=== PATIENT | male | born 1930 | race Caucasian/White ===

== ENCOUNTER 2019-01-07 14:29 | Inpatient (IN) ==
[2019-01-07] MEDS ORDERED: 0.9 % Sodium Chloride 1,000 ML IVC ONE (14:32)
--- NOTE | 2019-01-07 14:32 | Emergency Department Note ---
Disposition Clinical Impression: Dementia, Altered mental status, Atrial fibrillation, CKD (chronic kidney disease) stage 3, GFR 30-59 ml/min, Aspiration pneumonia, Strep pharyngitis, Elevated troponin Disposition: Admitted As Inpatient Condition: Fair Referrals: Mariah Almanzar MD [Primary Care Provider] - Forms: ED Satisfaction Letter Time of Disposition: 16:41 Altered Mental Status HPI - General Chief Complaint: ED Altered Mental Status Stated Complaint: ams Time Seen by Provider: 01/07/19 14:30 Source: EMS Mode of arrival: EMS Limitations: altered mental status Nursing Notes Reviewed: Yes Vital Signs Reviewed: Yes - History of Present Illness HPI Narrative: 88-year-old male who presents today from a skilled nursing with altered mental status. He is apparently a DNR and preparing to go on hospice. He has not eaten or drank in several days. Hospice wanted him checked out prior to be placed on hospice to make sure that he was well enough to be on hospice. Patient is a nonverbal patient. He does not complain of anything. He does not use words and sometimes points when he is having pain. At this point he moans to tactile stimulation but otherwise is not answering any questions at this time. complaint: altered mental status, decreased responsiveness - Related Data Home Medications Medication Instructions Recorded Confirmed Atorvastatin [Lipitor] 40 mg PO HS 06/02/16 01/07/19 Docusate [Colace] 100 mg PO BID 06/02/16 01/07/19 Donepezil HCl [Aricept] 10 mg PO HS 06/02/16 01/07/19 Finasteride [Proscar] 5 mg PO DAILY 06/02/16 01/07/19 Furosemide [Lasix] 40 mg PO DAILY 06/02/16 01/07/19 Levothyroxine [Synthroid] 125 mcg PO 0630 06/02/16 01/07/19 Loperamide [Imodium] 4 mg PO QID PRN MDD 4 06/02/16 01/07/19 Losartan Potassium [Cozaar] 50 mg PO DAILY 06/02/16 01/07/19 MOM Conc [MILK OF MAGNESIA conc] 30 ml PO PRN PRN 06/02/16 01/07/19 Magnesium Hydroxide [Milk of 30 ml PO DAILY PRN 06/02/16 01/07/19 Magnesia] Multivitamin [Multivitamins] 1 each PO QAM 06/02/16 01/07/19 Mylanta 30 ml PO PRN PRN 06/02/16 01/07/19 Omega3/Dha/Epa/Fish Oil/Vit D3 1 each PO BID 06/02/16 01/07/19 [Fish Oil + Vitamin D-3 Softgel] Omeprazole 20 mg PO QMWF 06/02/16 01/07/19 Atenolol [Tenormin] 50 mg PO DAILY 06/08/16 01/07/19 Calcium Carbonate/Vitamin D3 1 each PO BID 06/08/16 01/07/19 [Oyster Shell Calcium-Vit D Tab] diazePAM [Valium] 2 mg PO DAILY PRN 06/08/16 01/07/19 Acetaminophen [Acetaminophen ER] 650 mg PO Q4H PRN 01/07/19 01/07/19 Albuterol Neb [AccuNeb] 0.63 mg IH Q4H PRN 01/07/19 01/07/19 Apixaban [Eliquis] 2.5 mg PO BID 01/07/19 01/07/19 Cholecalciferol (Vitamin D3) 1,000 unit PO DAILY 01/07/19 01/07/19 [Dialyvite Vitamin D] Guaifenesin [Robafen] 200 mg PO Q4H PRN 01/07/19 01/07/19 Memantine HCl [Namenda Xr] 28 mg PO DAILY 01/07/19 01/07/19 Methyl Salicylate/Menthol [Bengay] 1 appl TP TID PRN 01/07/19 01/07/19 diazePAM [Valium] 10 mg PO PRN PRN 01/07/19 01/07/19 Previous Rx's Medication Instructions Recorded Isosorbide MONOnitrate (24 HR) 30 mg PO DAILY #30 tab.er.24h 06/05/16 [Imdur] Loratadine [Claritin] 10 mg PO QAM PRN #0 06/05/16 Allergies Allergy/AdvReac Type Severity Reaction Status Date / Time No Known Allergies Allergy Verified 06/02/16 20:46 Review of Systems: All other systems are negative except as noted/marked Chart generated with voice recognition software Nursing notes reviewed Old records reviewed Past Medical History - Past Medical History Attestation: Yes The following information was validated with the patient. Source: patient, old records reviewed, nursing notes reviewed Medical history: Reports: atrial fibrillation, COPD, coronary artery disease, GERD, hyperlipidemia, hypertension, seizures, other (Bradycardia) Psychiatric history: Reports: other - Social History Smoking Status: Never smoker Smokeless Tobacco Status: No Alcohol use: Reports: none Drug use: Reports: none Physical Exam - General Limitations: altered mental status General appearance: in no apparent distress - Head Head exam: atraumatic, normocephalic, normal inspection - Eye Eye exam: Present: normal appearance, PERRL, EOMI - ENT ENT exam: normal oropharynx, mucous membranes dry, normal external ear exam - Neck Neck exam: Present: normal inspection, full ROM, trachea midline - Chest Chest inspection: Present: normal inspection, symmetric chest wall rise - Respiratory Respiratory exam: Present: normal lung sounds bilaterally - Cardiovascular Cardiovascular exam: Present: regular rate, irregular rhythm, systolic murmur - Abdominal Exam Abdominal exam: Present: soft, Non-Tender, normal bowel sounds - Extremities Exam Extremities exam: Present: normal inspection, full ROM, normal capillary refill. Absent: tenderness, pedal edema - Back Exam Back exam: Present: normal inspection - Neurological Exam Neurological exam: Present: CN II-XII intact, other (arousable) - Psychiatric Psychiatric exam: Present: other (unable to assess) - Skin Skin exam: Present: warm, dry, intact, normal color Course Vital Signs Temperature 98.2 F 01/07/19 14:38 Pulse Rate 97 01/07/19 14:38 Respiratory Rate 22 01/07/19 14:38 Blood Pressure 99/56 01/07/19 14:38 O2 Sat by Pulse Oximetry 97 01/07/19 14:38 Temperature 98.2 F 01/07/19 14:38 Pulse Rate 62 01/07/19 16:35 Respiratory Rate 16 01/07/19 16:35 Blood Pressure 102/53 01/07/19 16:35 O2 Sat by Pulse Oximetry 94 01/07/19 16:35 Oxygen Delivery Oxygen Delivery Nasal Cannula Altered Mental Status - MDM Narrative Medical decision making narrative: 88-year-old gentleman who presents today by ambulance for altered mental status. He was sent in for evaluation for hospice care. Patient has not been eating or drinking anything for the last 2 days and has become increasingly agitated and does not like to be touched. He has no complaints. Patient is nonverbal. When patient arrived he is placed on monitor and found to be in A. fib which is chronic for him. His lung sounds were clear. Belly sounds are normal. Patient's had a for urine and nursing staff reports some yeast around the penis. Diflucan ordered for the yeast infection. Patient's creatinine is elevated however this is chronic for the patient and normal for him. He is a 19.6 white count. Chest x-ray pending however urinalysis does not show any infection. I do not see any open wounds on evaluation of the patient. His belly is soft. He is afebrile. CT head pending. CT head and CT and chest x-ray are negative. Ordered a dry skin of his abdomen and pelvis to completely rule out any other infection or insidious pathology. I also ordered a flu swab and rapid strep. CT abdomen and pelvis shows maybe some aspiration pneumonia and so started around his kidneys however his urinalysis was unremarkable. Your culture sent. Rapid strep was also positive. His received Zosyn here. I will add vancomycin when he is admitted. We did treat the yeast around his penis. I spoke with Dr. Ley regarding the patient he is agreeable to keep him. We did give him 1 L fluid but given his chronic kidney disease and CHF history I think he can go on to a maintenance fluid after this and not get a full 30/kg IV fluid bolus. Patient's resting comfortably at this time. He is being admitted to the floor for IV antibiotics - Medical Records Medical records reviewed: Yes I reviewed the patient's medical records. - Lab Data Lab results reviewed: Yes I reviewed the patient's lab results. Result diagrams: 01/07/19 14:46 01/07/19 14:46 Lab Results 01/07/19 01/07/19 01/07/19 Range/Units 14:46 14:46 14:46 WBC 19.8 H (4.3-11.1) K/mcL RBC 4.36 (4.19-5.50) M/mcL Hgb 14.0 (12.9-16.9) g/dL Hct 41.5 (37.5-50.1) % MCV 95.2 (83.0-100.0) fL MCH 32.1 (28.0-33.3) pg MCHC 33.7 (31.6-35.5) g/dL RDW 13.4 (11.5-14.5) % Plt Count 151 (140-400) K/mcL MPV 11.4 (9.4-12.4) fL Immature Gran % 0.4 (0-4) % Seg Neutrophils % 89.2 % Lymphocytes % 4.6 % Monocytes % 5.5 % Eosinophils % 0.0 % Basophils % 0.3 % Neutrophils # 17.7 H (1.6-8.9) K/mcL Lymphocytes # 0.9 (0.6-4.6) K/mcL Monocytes # 1.1 (0.0-1.3) K/mcL Eosinophils # 0.0 (0.0-0.6) K/mcL Basophils # 0.1 (0.0-0.2) K/mcL PT 17.5 H (9.4-12.1) Seconds INR 1.5 APTT 40.7 H (26.0-36.0) Seconds Sample Site ABG pH (7.32-7.45) pH Units ABG pCO2 (35-45) mmHg ABG pO2 (85-104) mmHg ABG HCO3 (21-27) mEq/L ABG Total CO2 (20-26) mEq/L ABG O2 Saturation (95-98) % ABG Base Excess (-2 to 3) mEq/L Willi Test O2 Delivery Device Sodium 140 (136-145) mEq/L Potassium 4.8 (3.5-5.1) mEq/L Chloride 104 (98-107) mEq/L Carbon Dioxide 26 (23-29) mEq/L BUN 41 H (8-23) mg/dL Creatinine 2.16 H (0.70-1.30) mg/dL Est GFR ( Amer) 35 L (> 60) Est GFR (Non-Af Amer) 29 L (> 60) BUN/Creatinine Ratio 19 (6-26) Glucose 159 H (70-105) mg/dL Calculated Osmolality 303 H (280-300) Lactic Acid (0.5-2.2) mmol/L Calcium 9.6 (8.6-10.3) mg/dL Magnesium (1.6-2.6) mg/dL Total Bilirubin 1.1 H (0.3-1.0) mg/dL Direct Bilirubin 0.2 (0.0-0.2) mg/dL Indirect Bilirubin 0.9 (0.0-1.2) mg/dL AST 23 (13-39) Units/L ALT 18 (7-52) Units/L Alkaline Phosphatase 100 (34-104) Units/L Troponin I 0.05 H* (< 0.04) ng/mL Serum Total Protein 7.1 (6.4-8.9) g/dL Albumin 3.5 (3.5-5.7) g/dL Globulin 3.6 H (2.4-3.5) g/dL Albumin/Globulin Ratio 1.0 L (1.1-2.2) Urine Color (Yellow) Urine Clarity (Clear) Urine pH (5.0-8.0) pH Units Ur Specific [place] (1.010-1.025) Urine Protein (Neg-Trace) mg/dL Urine Glucose (UA) (Normal) mg/dL Urine Ketones (Negative) mg/dL Urine Blood (Negative) Urine Nitrite (Negative) Urine Bilirubin (Negative) Urine Urobilinogen (Normal) mg/dL Ur Leukocyte Esterase (Negative) Ur Culture Indicated? (NO) Urine Opiates Screen (Fxiyfq=876) ng/mL Ur Oxycodone Screen (Cutoff= 100) ng/mL Ur Barbiturates Screen (Mfkmsy=925) ng/mL Ur Phencyclidine Scrn (Cutoff=25) ng/mL Ur Amphetamines Screen (Ssekdz=5792) ng/mL U Benzodiazepines Scrn (Ulujkw=528) ng/mL Urine Cocaine Screen (Cutoff= 300) ng/mL U Marijuana (THC) Screen (Cutoff = 50) ng/mL Ur Drug Screen Interp Ethyl Alcohol < 10 (Less than 10) mg/dL 01/07/19 01/07/19 01/07/19 Range/Units 14:46 14:59 15:04 WBC (4.3-11.1) K/mcL RBC (4.19-5.50) M/mcL Hgb (12.9-16.9) g/dL Hct (37.5-50.1) % MCV (83.0-100.0) fL MCH (28.0-33.3) pg MCHC (31.6-35.5) g/dL RDW (11.5-14.5) % Plt Count (140-400) K/mcL MPV (9.4-12.4) fL Immature Gran % (0-4) % Seg Neutrophils % % Lymphocytes % % Monocytes % % Eosinophils % % Basophils % % Neutrophils # (1.6-8.9) K/mcL Lymphocytes # (0.6-4.6) K/mcL Monocytes # (0.0-1.3) K/mcL Eosinophils # (0.0-0.6) K/mcL Basophils # (0.0-0.2) K/mcL PT (9.4-12.1) Seconds INR APTT (26.0-36.0) Seconds Sample Site R Radial ABG pH 7.49 H (7.32-7.45) pH Units ABG pCO2 28 L (35-45) mmHg ABG pO2 72 L (85-104) mmHg ABG HCO3 21 (21-27) mEq/L ABG Total CO2 22 (20-26) mEq/L ABG O2 Saturation 96 (95-98) % ABG Base Excess -1 (-2 to 3) mEq/L Willi Test N/A O2 Delivery Device Room Air Sodium (136-145) mEq/L Potassium (3.5-5.1) mEq/L Chloride (98-107) mEq/L Carbon Dioxide (23-29) mEq/L BUN (8-23) mg/dL Creatinine (0.70-1.30) mg/dL Est GFR ( Amer) (> 60) Est GFR (Non-Af Amer) (> 60) BUN/Creatinine Ratio (6-26) Glucose (70-105) mg/dL Calculated Osmolality (280-300) Lactic Acid (0.5-2.2) mmol/L Calcium (8.6-10.3) mg/dL Magnesium 2.0 (1.6-2.6) mg/dL Total Bilirubin (0.3-1.0) mg/dL Direct Bilirubin (0.0-0.2) mg/dL Indirect Bilirubin (0.0-1.2) mg/dL AST (13-39) Units/L ALT (7-52) Units/L Alkaline Phosphatase (34-104) Units/L Troponin I (< 0.04) ng/mL Serum Total Protein (6.4-8.9) g/dL Albumin (3.5-5.7) g/dL Globulin (2.4-3.5) g/dL Albumin/Globulin Ratio (1.1-2.2) Urine Color Yellow (Yellow) Urine Clarity Clear (Clear) Urine pH 5.0 (5.0-8.0) pH Units Ur Specific [place] 1.010 (1.010-1.025) Urine Protein Trace (Neg-Trace) mg/dL Urine Glucose (UA) Normal (Normal) mg/dL Urine Ketones Trace H (Negative) mg/dL Urine Blood Negative (Negative) Urine Nitrite Negative (Negative) Urine Bilirubin Negative (Negative) Urine Urobilinogen Normal (Normal) mg/dL Ur Leukocyte Esterase Negative (Negative) Ur Culture Indicated? NO (NO) Urine Opiates Screen (Psdcwo=571) ng/mL Ur Oxycodone Screen (Cutoff= 100) ng/mL Ur Barbiturates Screen (Ocfrtm=982) ng/mL Ur Phencyclidine Scrn (Cutoff=25) ng/mL Ur Amphetamines Screen (Vyvlbr=6611) ng/mL U Benzodiazepines Scrn (Bqoemq=058) ng/mL Urine Cocaine Screen (Cutoff= 300) ng/mL U Marijuana (THC) Screen (Cutoff = 50) ng/mL Ur Drug Screen Interp Ethyl Alcohol (Less than 10) mg/dL 01/07/19 01/07/19 Range/Units 15:04 15:04 WBC (4.3-11.1) K/mcL RBC (4.19-5.50) M/mcL Hgb (12.9-16.9) g/dL Hct (37.5-50.1) % MCV (83.0-100.0) fL MCH (28.0-33.3) pg MCHC (31.6-35.5) g/dL RDW (11.5-14.5) % Plt Count (140-400) K/mcL MPV (9.4-12.4) fL Immature Gran % (0-4) % Seg Neutrophils % % Lymphocytes % % Monocytes % % Eosinophils % % Basophils % % Neutrophils # (1.6-8.9) K/mcL Lymphocytes # (0.6-4.6) K/mcL Monocytes # (0.0-1.3) K/mcL Eosinophils # (0.0-0.6) K/mcL Basophils # (0.0-0.2) K/mcL PT (9.4-12.1) Seconds INR APTT (26.0-36.0) Seconds Sample Site ABG pH (7.32-7.45) pH Units ABG pCO2 (35-45) mmHg ABG pO2 (85-104) mmHg ABG HCO3 (21-27) mEq/L ABG Total CO2 (20-26) mEq/L ABG O2 Saturation (95-98) % ABG Base Excess (-2 to 3) mEq/L Willi Test O2 Delivery Device Sodium (136-145) mEq/L Potassium (3.5-5.1) mEq/L Chloride (98-107) mEq/L Carbon Dioxide (23-29) mEq/L BUN (8-23) mg/dL Creatinine (0.70-1.30) mg/dL Est GFR ( Amer) (> 60) Est GFR (Non-Af Amer) (> 60) BUN/Creatinine Ratio (6-26) Glucose (70-105) mg/dL Calculated Osmolality (280-300) Lactic Acid 2.7 H (0.5-2.2) mmol/L Calcium (8.6-10.3) mg/dL Magnesium (1.6-2.6) mg/dL Total Bilirubin (0.3-1.0) mg/dL Direct Bilirubin (0.0-0.2) mg/dL Indirect Bilirubin (0.0-1.2) mg/dL AST (13-39) Units/L ALT (7-52) Units/L Alkaline Phosphatase (34-104) Units/L Troponin I (< 0.04) ng/mL Serum Total Protein (6.4-8.9) g/dL Albumin (3.5-5.7) g/dL Globulin (2.4-3.5) g/dL Albumin/Globulin Ratio (1.1-2.2) Urine Color (Yellow) Urine Clarity (Clear) Urine pH (5.0-8.0) pH Units Ur Specific [place] (1.010-1.025) Urine Protein (Neg-Trace) mg/dL Urine Glucose (UA) (Normal) mg/dL Urine Ketones (Negative) mg/dL Urine Blood (Negative) Urine Nitrite (Negative) Urine Bilirubin (Negative) Urine Urobilinogen (Normal) mg/dL Ur Leukocyte Esterase (Negative) Ur Culture Indicated? (NO) Urine Opiates Screen Negative (Yywklt=202) ng/mL Ur Oxycodone Screen Negative (Cutoff= 100) ng/mL Ur Barbiturates Screen Negative (Fkdfja=659) ng/mL Ur Phencyclidine Scrn Negative (Cutoff=25) ng/mL Ur Amphetamines Screen Negative (Nriifk=1015) ng/mL U Benzodiazepines Scrn Positive H (Ctyhvb=742) ng/mL Urine Cocaine Screen Negative (Cutoff= 300) ng/mL U Marijuana (THC) Screen Negative (Cutoff = 50) ng/mL Ur Drug Screen Interp See Below Ethyl Alcohol (Less than 10) mg/dL - Radiology Data Radiology results reviewed: Yes I reviewed the patient's radiology results. CT/CT head/brain wo con IMPRESSION: No acute intracranial abnormality. D/ / Serge Macdonald MD / Serge Macdonald MD Interpreting Provider: Serge Macdonald MD XR/XR chest 1V portable IMPRESSION: Hypoaeration without acute process. Hiatal hernia D/ / Serge Macdonald MD / Serge Macdonald MD Interpreting Provider: Serge Macdonald MD - EKG Data EKG attestation: Yes I reviewed and interpreted this EKG. EKG results narrative: EKG interpreted by myself as A. fib with a rate of 102 QTc of 535 which is prolonged no ST elevation TPA Checklist - LKW: 3-4.5 hrs Add. Warnings/Precautions Patient/family understanding: The patient/family members have been counseled and understood the risk, benefit, and alternatives of treatment.
[2019-01-07 14:56] LABS: Basophils # 0.1 K/mcL (0.0-0.2); Basophils % 0.3 %; Hematocrit 41.5 % (37.5-50.1); Immature Granulocytes % 0.4 % (0-4); Lymphocytes # 0.9 K/mcL (0.6-4.6); Lymphocytes % 4.6 %; Mean Corpuscular HGB Conc 33.7 g/dL (31.6-35.5); Mean Corpuscular Hemoglobin 32.1 pg (28.0-33.3); Mean Corpuscular Volume 95.2 fL (83.0-100.0); Mean Platelet Volume 11.4 fL (9.4-12.4); Monocytes # 1.1 K/mcL (0.0-1.3); Monocytes % 5.5 %; Neutrophils # 17.7 K/mcL (1.6-8.9); Platelet Count 151 K/mcL (140-400); Red Blood Count 4.36 M/mcL (4.19-5.50); Red Cell Distribution Width 13.4 % (11.5-14.5); Segmented Neutrophils % 89.2 %; White Blood Count 19.8 K/mcL (4.3-11.1)
[2019-01-07 15:01] LABS: INR 1.5; Prothrombin Time 17.5 Seconds (9.4-12.1)
[2019-01-07 15:03] LABS: ABG Base Excess -1 mEq/L (-2 to 3); ABG HCO3 21 mEq/L (21-27); ABG Oxygen Saturation 96 % (95-98); ABG PCO2 28 mmHg (35-45); ABG PH 7.49 pH Units (7.32-7.45); ABG PO2 72 mmHg (85-104); ABG TCO2 22 mEq/L (20-26)
[2019-01-07 15:04] LABS: Activated Partial Thrombo Time 40.7 Seconds (26.0-36.0)
[2019-01-07] MEDS ORDERED: Piperacillin/Tazobactam 3.375 GM in 0.9 % Sodium Chloride Mini Bag 100 ML IVPB ONE (15:06)
[2019-01-07 15:13] LABS: Alanine Aminotransferase 18 Units/L (7-52); Albumin 3.5 g/dL (3.5-5.7); Alkaline Phosphatase 100 Units/L (34-104); Aspartate Amino Transferase 23 Units/L (13-39); BUN/Creatinine Ratio 19 (6-26); Bilirubin,Direct 0.2 mg/dL (0.0-0.2); Bilirubin,Indirect 0.9 mg/dL (0.0-1.2); Bilirubin,Total 1.1 mg/dL (0.3-1.0); Blood Urea Nitrogen 41 mg/dL (8-23); Calcium 9.6 mg/dL (8.6-10.3); Carbon Dioxide 26 mEq/L (23-29); Chloride 104 mEq/L (98-107); Ethanol < 10 mg/dL (Less than 10); Globulin 3.6 g/dL (2.4-3.5); Glucose 159 mg/dL (70-105); Osmolality,Calculated 303 (280-300); Potassium 4.8 mEq/L (3.5-5.1); Sodium 140 mEq/L (136-145); Total Protein 7.1 g/dL (6.4-8.9); eGFR For African Americans 35 (> 60); eGFR For Non-African Americans 29 (> 60)
[2019-01-07 15:14] LABS: Bilirubin,Urine Negative (Negative); Blood,Urine Negative (Negative); Clarity,Urine Clear (Clear); Color,Urine Yellow (Yellow); Glucose,Urine (UA) Normal (Normal); Ketones,Urine Trace mg/dL (Negative); Leukocyte Esterase,Urine Negative (Negative); Nitrite,Urine Negative (Negative); Protein,Urine Trace mg/dL (Neg-Trace); Urobilinogen,Urine Normal (Normal)
[2019-01-07] MEDS ORDERED: Fluconazole 200 MG/100 ML 100 MG/50 ML BAG IVPB SCH (15:15)
[2019-01-07 15:27] LABS: Amphetamine Screen,Urine Negative ng/mL (Cutoff=1000); Barbiturate Screen,Urine Negative ng/mL (Cutoff=200); Benzodiazepines Screen,Urine Positive ng/mL (Cutoff=200); Cannabinoid Screen,Urine Negative ng/mL (Cutoff = 50); Cocaine Screen,Urine Negative ng/mL (Cutoff= 300); Opiate Screen,Urine Negative ng/mL (Cutoff=300); Phencyclidine Screen,Urine Negative ng/mL (Cutoff=25)
[2019-01-07 16:23] LABS: Troponin I 0.05 ng/mL (< 0.04)
[2019-01-07] MEDS ORDERED: Mag Hydrox/Al Hydrox/Simeth 30 ML UDC PO PRN (18:36)
[2019-01-07] MEDS ORDERED: Naloxone 0.4 MG/ML INJ IVP PRN (18:36)
[2019-01-07] MEDS ORDERED: MOM Conc 10 ML UD.LIQ PO PRN ×2 (18:36)
[2019-01-07] MEDS ORDERED: Acetaminophen 325 MG TABLET PO PRN (18:36)
[2019-01-07] MEDS ORDERED: Methyl Salicylate/Menthol 28 GM TUBE TP PRN (18:36)
[2019-01-07] MEDS ORDERED: Ondansetron 4 MG/2 ML VIAL IVP PRN (18:36)
[2019-01-07] MEDS ORDERED: 0.9 % Sodium Chloride 1,000 ML IVC SCH (18:36)
[2019-01-07] MEDS ORDERED: *HR* HYDROcodone/Acet 5/325 mg TABLET PO PRN (18:36)
[2019-01-07] MEDS ORDERED: Milk and Molasses Enema 200 ML RC ONE (18:36)
[2019-01-07] MEDS ORDERED: Albuterol Neb 0.63 MG/3 ML VIAL IH PRN (18:36)
[2019-01-07] MEDS ORDERED: 0.9 % Sodium Chloride 500 ML IVC ONE (18:45)
[2019-01-07] MEDS: 0.9 % Sodium Chloride 1,000 ML IVC SCH (21:18)
[2019-01-07] MEDS: Apixaban 5 MG TABLET PO SCH (21:20)
[2019-01-07] MEDS: Piperacillin/Tazobactam 3.375 GM in 0.9 % Sodium Chloride Mini Bag 100 ML IVPB SCH (23:50)
[2019-01-08 05:50] LABS: Basophils # 0.1 K/mcL (0.0-0.2); Basophils % 0.4 %; Eosinophils # 0.2 K/mcL (0.0-0.6); Eosinophils % 1.2 %; Hematocrit 37.1 % (37.5-50.1); Hemoglobin 12.5 g/dL (12.9-16.9); Immature Granulocytes % 0.3 % (0-4); Lymphocytes # 1.3 K/mcL (0.6-4.6); Lymphocytes % 10.5 %; Mean Corpuscular HGB Conc 33.7 g/dL (31.6-35.5); Mean Corpuscular Hemoglobin 32.5 pg (28.0-33.3); Mean Corpuscular Volume 96.4 fL (83.0-100.0); Mean Platelet Volume 11.6 fL (9.4-12.4); Monocytes % 7.8 %; Neutrophils # 10.1 K/mcL (1.6-8.9); Platelet Count 147 K/mcL (140-400); Red Blood Count 3.85 M/mcL (4.19-5.50); Red Cell Distribution Width 13.8 % (11.5-14.5); Segmented Neutrophils % 79.8 %; White Blood Count 12.6 K/mcL (4.3-11.1)
[2019-01-08 06:09] LABS: Potassium 4.4 mEq/L (3.5-5.1)
[2019-01-08] MEDS ORDERED: Furosemide 40 MG TABLET PO SCH (09:00)
[2019-01-08] MEDS: Fluconazole 200 MG/100 ML 100 MG/50 ML BAG IVPB SCH (09:11)
[2019-01-08] MEDS: 0.9 % Sodium Chloride 1,000 ML IVC SCH (09:12)
--- NOTE | 2019-01-08 09:29 | Internal Med History&Physical ---
Date of Encounter: 01/08/19 Time of Encounter: 09:15 Assessment and Plan (1) Acute on chronic renal failure Current visit: Yes Status: Acute Lasix will be held and IV fluids will be given. Labs will be monitored. Qualifiers: Acute renal failure type: unspecified Chronic kidney disease stage: stage 3 (moderate) Qualified Code(s): N17.9 - Acute kidney failure, unspecified; N18.3 - Chronic kidney disease, stage 3 (moderate) (2) CKD (chronic kidney disease) stage 3, GFR 30-59 ml/min Current visit: Yes Status: Chronic As above (3) Elevated brain natriuretic peptide (BNP) level Current visit: Yes Status: Acute BN peptide was 2179 on 06/08/2016. Recheck today. (4) Atrial fibrillation Current visit: Yes Status: Chronic Suspect paroxysmal. Continue Eliquis Qualifiers: Atrial fibrillation type: paroxysmal Qualified Code(s): I48.0 - Paroxysmal atrial fibrillation (5) Anemia Current visit: No Status: Acute Hemoglobin decreased to 12.5 today after IV fluids administered. Recheck labs in a.m. Qualifiers: Anemia type: unspecified type Qualified Code(s): D64.9 - Anemia, unspecified (6) Hypothyroidism Current visit: No Status: Chronic TSH was normal at 1.232 on 09/09/2018. Continue present dose Synthroid Qualifiers: Hypothyroidism type: unspecified Qualified Code(s): E03.9 - Hypothyroidism, unspecified (7) Strep pharyngitis Current visit: Yes Status: Acute He was started on Zosyn and vancomycin in emergency room. Lactobacillus will be added. Internal Medicine - H&P: HPI Chief complaint: Altered mental status Admitted From: Emergency Dept Plans for Post Hospital Care: Home History of present illness: Mr. Lei is a 88 year old male who was sent from a half-way after staff report altered mental status. He could not offer additional history in emergency room because of MRDD. Evaluation in emergency room showed leukocytosis with left shift, respiratory alkalosis, lactic acidosis, and acute on chronic renal failure. He was admitted to [facility] floor for ongoing care needs. He cannot give additional history at this time. Past Med Surg Social Fam HX - Past Medical History Medical history: atrial fibrillation, COPD, coronary artery disease, GERD, hyperlipidemia, hypertension, myocardial infarction, seizures, other Additional medical history: severe mental retardation. cataracts. thrombophlebitis. systolic murmur Psychiatric history: no psych history - Social History Smoking Status: Never smoker Smokeless Tobacco Status: No Alcohol use: none Drug use: none - Family History Mother History Unknown: Yes Internal Medicine - H&P: Meds Atorvastatin [Lipitor] 40 mg PO HS 06/02/16 [History] Docusate [Colace] 100 mg PO BID 06/02/16 [History] Donepezil HCl [Aricept] 10 mg PO HS 06/02/16 [History] Finasteride [Proscar] 5 mg PO DAILY 06/02/16 [History] Furosemide [Lasix] 40 mg PO DAILY 06/02/16 [History] Levothyroxine [Synthroid] 125 mcg PO 0630 06/02/16 [History] Loperamide [Imodium] 4 mg PO QID PRN MDD 4 06/02/16 [History] Losartan Potassium [Cozaar] 50 mg PO DAILY 06/02/16 [History] MOM Conc [MILK OF MAGNESIA conc] 30 ml PO PRN PRN 06/02/16 [History] Magnesium Hydroxide [Milk of Magnesia] 30 ml PO DAILY PRN 06/02/16 [History] Multivitamin [Multivitamins] 1 each PO QAM 06/02/16 [History] Mylanta 30 ml PO PRN PRN 06/02/16 [History] Omega3/Dha/Epa/Fish Oil/Vit D3 [Fish Oil + Vitamin D-3 Softgel] 1 each PO BID 06/02/16 [History] Omeprazole 20 mg PO QMWF 06/02/16 [History] Isosorbide MONOnitrate (24 HR) [Imdur] 30 mg PO DAILY #30 tab.er.24h 06/05/16 [Rx] Loratadine [Claritin] 10 mg PO QAM PRN #0 06/05/16 [Rx] Atenolol [Tenormin] 50 mg PO DAILY 06/08/16 [History] Calcium Carbonate/Vitamin D3 [Oyster Shell Calcium-Vit D Tab] 1 each PO BID 06/08/16 [History] diazePAM [Valium] 2 mg PO DAILY PRN 06/08/16 [History] Acetaminophen [Acetaminophen ER] 650 mg PO Q4H PRN 01/07/19 [History] Albuterol Neb [AccuNeb] 0.63 mg IH Q4H PRN 01/07/19 [History] Apixaban [Eliquis] 2.5 mg PO BID 01/07/19 [History] Cholecalciferol (Vitamin D3) [Dialyvite Vitamin D] 1,000 unit PO DAILY 01/07/19 [History] Guaifenesin [Robafen] 200 mg PO Q4H PRN 01/07/19 [History] Memantine HCl [Namenda Xr] 28 mg PO DAILY 01/07/19 [History] Methyl Salicylate/Menthol [Bengay] 1 appl TP TID PRN 01/07/19 [History] diazePAM [Valium] 10 mg PO PRN PRN 01/07/19 [History] Allergy/AdvReac Type Severity Reaction Status Date / Time No Known Allergies Allergy Verified 06/02/16 20:46 All Systems PM: A 10-system review of systems was performed and is negative for pertinent findings except as documented above in the HPI. Review of systems: Unobtainable from the patient. Review of available records show the following: Gen.: Weight has decreased slightly from 74.979 kg on 06/05/2016 to present weight of 71.214 kg. Cardiovascular: He has atrial fibrillation and history of hypertension. Old records show diagnosis of ischemia of the inferior and lateral wall of the heart without the test/date to determine diagnosis specified. He has history of thrombophlebitis and leg edema. Echocardiogram 07/08/2018 showed LVEF of 50%. There was calcified aortic valve with severe aortic stenosis and estimated REGIS approximately 0.6 cm. There was mild aortic regurgitation and [id number] tricuspid regurgitation. Estimated RVSP was 32 mmHg. Interventricular septum and posterior wall thickness measurements were 1.01 and 0.80 cm respectively. There was LAE at 4.60 cm. No mention of DVT or pulmonary embolus is recorded. Respiratory: Smoking history is not reported. There is no mention of chronic lung disease. He was treated for pneumonia during May 2016 [facility] hospitalization GI: No mention of disorders of liver gallbladder or exocrine pancreas. : No mention of hematuria dysuria or or kidney stones. He has diagnoses of BPH Neurologic: He has MRDD. There is no mention of large distribution strokes or seizures. Head CT in emergency room did not show acute intracranial abnormality. Endocrine: He has hypothyroidism and hyperlipidemia. There is no documented diabetes. Hematology/oncology: No documentation of blood disorders anemia or internal malignancies. Psychiatric: No documentation of anxiety depression or mental health diagnoses. [place] skeletal: No mention of gout or significant arthritis. - Constitutional Vitals: Temp Pulse Resp BP Pulse Ox 98.0 F 58 20 96/52 95 01/07/19 18:36 01/07/19 18:36 01/07/19 18:36 01/07/19 22:25 01/07/19 18:36 Exam: Gen.: He is a well-developed well-nourished male lying in bed who appears in no acute distress. He is agitated on attempting examination and does not cooperate. HEENT: Head is atraumatic and normocephalic. Eyes: He does not open his eyes. Mouth: He has thick saliva visible when his mouth is open. He does not follow commands to protrude his tongue. Neck: Examination cannot be performed due to poor cooperation. Heart: Tones are soft. Rhythm seemed regular with occasional ectopic. Lungs: No wheezes or crackles are heard. Abdomen: Soft and nontender on limited examination. Extremities: There is no edema of his lower legs. 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 Neurologic: Mental status: He is uncooperative to examination. He answers "no" to questions. Cranial nerves: Eyes cannot be examined because of lack of cooperation. He does not protrude his tongue. Facial tone appear symmetric at rest and with speech. Motor: He moves his arms and legs to resist examination. He does not cooperate for further formal testing. Skin: Warm and dry. Internal Med - H&P Results - Labs CBC & Chem 7: 01/08/19 05:39 01/08/19 05:39 Labs: Short CBC 01/07/19 01/08/19 Range/Units 14:46 05:39 WBC 19.8 H 12.6 H (4.3-11.1) K/mcL Hgb 14.0 12.5 L D (12.9-16.9) g/dL Hct 41.5 37.1 L (37.5-50.1) % Plt Count 151 147 (140-400) K/mcL Neutrophils # 17.7 H 10.1 H (1.6-8.9) K/mcL BMP 01/07/19 01/08/19 14:46 05:39 Sodium 140 143 Potassium 4.8 4.4 Chloride 104 110 H Carbon Dioxide 26 24 BUN 41 H 43 H Creatinine 2.16 H 2.05 H Glucose 159 H 114 H Calcium 9.6 9.0 Cardiac Enzymes 01/07/19 Range/Units 14:46 Troponin I 0.05 H* (< 0.04) ng/mL Liver Function 01/07/19 Range/Units 14:46 Total Bilirubin 1.1 H (0.3-1.0) mg/dL Direct Bilirubin 0.2 (0.0-0.2) mg/dL AST 23 (13-39) Units/L ALT 18 (7-52) Units/L Alkaline Phosphatase 100 (34-104) Units/L Albumin 3.5 (3.5-5.7) g/dL Urine 01/07/19 Range/Units 15:04 Urine Color Yellow (Yellow) Urine Clarity Clear (Clear) Urine pH 5.0 (5.0-8.0) pH Units Ur Specific [place] 1.010 (1.010-1.025) Urine Protein Trace (Neg-Trace) mg/dL Urine Glucose (UA) Normal (Normal) mg/dL - ABG Interpretation ABG results: 01/07/19 14:59 ABG pH 7.49 H ABG pCO2 28 L ABG pO2 72 L ABG HCO3 21 ABG Total CO2 22 ABG O2 Saturation 96 ABG Base Excess -1 - Impressions ITS Impressions Chest X-Ray 01/07/19 14:32 IMPRESSION: Hypoaeration without acute process. Hiatal hernia. D/ / 01/07/2019 15:53:09 Serge Macdonald MD / bcarter Interpreting Provider: Serge Macdonald MD Head CT 01/07/19 14:33 IMPRESSION: No acute intracranial abnormality. D/ / 01/07/2019 15:55:20 Serge Macdonald MD / lgray Interpreting Provider: Serge Macdonald MD Abdomen/Pelvis CT 01/07/19 15:56 IMPRESSION: Right perinephric fat stranding. Correlate with any clinical evidence of urinary tract infection/pyelonephritis. Inflammatory clusters of micro nodules within the lower lungs bilaterally, compatible with infectious or inflammatory bronchiolitis. Aspiration is also considered. Moderate to large hiatal hernia. Large amount of stool within the rectum. Correlate with clinical evidence of rectal impaction. D/ / Christopher Hurley MD / Christopher Hurley MD Interpreting Provider: Christopher Hurley MD
[2019-01-08] MEDS: Piperacillin/Tazobactam 3.375 GM in 0.9 % Sodium Chloride Mini Bag 100 ML IVPB SCH ×3 (09:35→23:34)
[2019-01-08] MEDS: Apixaban 5 MG TABLET PO SCH ×2 (10:54→22:58)
[2019-01-08] MEDS: Isosorbide MONOnitrate (24 HR) 30 MG TAB.ER.24H PO SCH (10:54)
[2019-01-08] MEDS: Finasteride 5 MG TABLET PO SCH (10:57)
[2019-01-08] MEDS ORDERED: Aminoglycoside Consult 1 EACH MC ONE (13:46)
--- NOTE | 2019-01-08 13:55 | Electrocardiograph Report ---
[place] [id number] Test Date: 2019-01-07 Pat Name: Fidel Lei Department: EDP-11 Room: [facility] Gender: M Proposal Rep: : [id number] Requested By: Brenda Phan Order Number: [id number] Reading MD: Mega Santiago Measurements Intervals [place] Rate: 102 P: SD: QRS: -2 QRSD: 75 T: 14 QT: 410 QTc: 535 Interpretive Statements Atrial fibrillation/flutter Nonspecific ST-T changes Electronically Signed On 01-08-2019 13:53:57 EDT by Mega Santiago
[2019-01-08] MEDS ORDERED: Albuterol 2.5 MG/3 ML NEBULIZER IH PRN (14:22)
[2019-01-08] MEDS: Lactobacillus 1 EACH CAP.SPRINK PO SCH (22:58)
[2019-01-09 05:37] LABS: Basophils # 0.1 K/mcL (0.0-0.2); Basophils % 0.6 %; Eosinophils # 0.4 K/mcL (0.0-0.6); Eosinophils % 3.9 %; Hematocrit 39.6 % (37.5-50.1); Hemoglobin 12.8 g/dL (12.9-16.9); Immature Granulocytes % 0.5 % (0-4); Lymphocytes # 1.2 K/mcL (0.6-4.6); Lymphocytes % 10.9 %; Mean Corpuscular HGB Conc 32.3 g/dL (31.6-35.5); Mean Corpuscular Hemoglobin 31.8 pg (28.0-33.3); Mean Corpuscular Volume 98.3 fL (83.0-100.0); Monocytes # 0.8 K/mcL (0.0-1.3); Monocytes % 7.1 %; Neutrophils # 8.5 K/mcL (1.6-8.9); Platelet Count 160 K/mcL (140-400); Red Blood Count 4.03 M/mcL (4.19-5.50); Red Cell Distribution Width 13.8 % (11.5-14.5)
[2019-01-09 05:58] LABS: Potassium 4.2 mEq/L (3.5-5.1)
--- NOTE | 2019-01-09 10:07 | Internal Med Progress Note ---
Date of Encounter: 01/09/19 Time of Encounter: 09:55 - Assessment and plan (1) Acute on chronic renal failure Current Visit: Yes Status: Acute Assessment and plan: January 09. BUN and creatinine improved to 37 and 1.83 respectively with estimated GFR of 35. Continue IV fluids and withholding Lasix. Qualifiers: Acute renal failure type: unspecified Chronic kidney disease stage: stage 3 (moderate) Qualified Code(s): N17.9 - Acute kidney failure, unspecified; N18.3 - Chronic kidney disease, stage 3 (moderate) (2) CKD (chronic kidney disease) stage 3, GFR 30-59 ml/min Current Visit: Yes Status: Chronic Assessment and plan: January 09. As above (3) Elevated brain natriuretic peptide (BNP) level Current Visit: Yes Status: Acute Assessment and plan: January 09. BN peptide 1188. Increase Imdur and continue Cozaar. Change atenolol to Toprol-XL. (4) Atrial fibrillation Current Visit: Yes Status: Chronic Assessment and plan: January 09. Continue Eliquis Qualifiers: Atrial fibrillation type: paroxysmal Qualified Code(s): I48.0 - Paroxysmal atrial fibrillation (5) Anemia Current Visit: No Status: Acute Assessment and plan: January 09. Hemoglobin stable at 12.8. Anemia testing showed iron 26, transferrin saturation 12%, transferrin 160, and ferritin 150. B12 and folate are pending. Start ferrous sulfate with ascorbic acid in a.m. Qualifiers: Anemia type: unspecified type Qualified Code(s): D64.9 - Anemia, unspecified (6) Hypothyroidism Current Visit: No Status: Chronic Assessment and plan: January 09. TSH was normal at 1.232 on 09/09/2018. Continue present dose Synthroid. Qualifiers: Hypothyroidism type: unspecified Qualified Code(s): E03.9 - Hypothyroidism, unspecified (7) Strep pharyngitis Current Visit: Yes Status: Acute Assessment and plan: January 09. WBC has normalized to 11.0 with decreased left shift on differential. Continue Zosyn, vancomycin and lactobacillus. (8) Bronchiolitis Current Visit: Yes Status: Acute Assessment and plan: January 09. Abdominal CT showed bilateral lower lungs with inflammatory clusters of micronodules consistent with infectious or inflammatory bronchiolitis. Continue Zosyn and vancomycin with lactobacillus. Pro-calcitonin level will be ordered. - Subjective Interval history: January 09. No new problems have arisen. - Constitutional Vitals: Temp Pulse Resp BP Pulse Ox 97.7 F 91 18 146/87 99 01/09/19 03:41 01/09/19 03:41 01/09/19 03:41 01/09/19 03:41 01/09/19 03:41 Exam: He is resting comfortably in bed and appears in no acute distress. He is less agitated and answers a few questions with simple one-word answers. Heart is irregularly irregular. Lungs are clear anteriorly. Extremities show no pitting edema. I reviewed his medications and lab results. Internal Medicine: Result - Labs CBC & Chem 7: 01/09/19 05:20 01/09/19 05:20 Labs: Short CBC 01/09/19 Range/Units 05:20 WBC 11.0 (4.3-11.1) K/mcL Hgb 12.8 L (12.9-16.9) g/dL Hct 39.6 (37.5-50.1) % Plt Count 160 (140-400) K/mcL Neutrophils # 8.5 (1.6-8.9) K/mcL BMP 01/09/19 05:20 Sodium 142 Potassium 4.2 Chloride 109 H Carbon Dioxide 22 L BUN 37 H Creatinine 1.83 H Glucose 81 Calcium 9.0 - ABG Interpretation ABG results: ABG ABG pH 7.49 pH Units (7.32-7.45) H 01/07/19 14:59 ABG pCO2 28 mmHg (35-45) L 01/07/19 14:59 ABG pO2 72 mmHg (85-104) L 01/07/19 14:59 ABG O2 Saturation 96 % (95-98) 01/07/19 14:59 PT/INR, D-dimer PT 17.5 Seconds (9.4-12.1) H 01/07/19 14:46 Consult Discharge Plan - Plan Referrals: Mariah Almanzar MD [Primary Care Provider] - 1 week
[2019-01-09] MEDS: Piperacillin/Tazobactam 3.375 GM in 0.9 % Sodium Chloride Mini Bag 100 ML IVPB SCH ×3 (10:14→23:09)
[2019-01-09] MEDS: Fluconazole 200 MG/100 ML 100 MG/50 ML BAG IVPB SCH (10:15)
[2019-01-09] MEDS: Lactobacillus 1 EACH CAP.SPRINK PO SCH ×2 (10:17→20:34)
[2019-01-09] MEDS: Apixaban 5 MG TABLET PO SCH ×2 (10:17→20:34)
[2019-01-09] MEDS: Finasteride 5 MG TABLET PO SCH (10:18)
[2019-01-09] MEDS: Isosorbide MONOnitrate (24 HR) 30 MG TAB.ER.24H PO SCH (10:23)
[2019-01-09 10:47] LABS: Folate > 22.3 ng/mL (3.0-16.0); Vitamin B12 606 pg/mL (250-1100)
[2019-01-10] MEDS: Ascorbic Acid 500 MG TABLET PO SCH (05:23)
[2019-01-10 06:30] LABS: Basophils # 0.1 K/mcL (0.0-0.2); Basophils % 0.5 %; Eosinophils # 0.2 K/mcL (0.0-0.6); Eosinophils % 2.1 %; Hematocrit 38.2 % (37.5-50.1); Hemoglobin 12.7 g/dL (12.9-16.9); Immature Granulocytes % 0.5 % (0-4); Mean Corpuscular HGB Conc 33.2 g/dL (31.6-35.5); Mean Corpuscular Hemoglobin 31.9 pg (28.0-33.3); Mean Platelet Volume 11.6 fL (9.4-12.4); Monocytes # 0.8 K/mcL (0.0-1.3); Neutrophils # 8.9 K/mcL (1.6-8.9); Platelet Count 158 K/mcL (140-400); Red Blood Count 3.98 M/mcL (4.19-5.50); Red Cell Distribution Width 13.6 % (11.5-14.5); Segmented Neutrophils % 80.9 %
[2019-01-10 06:49] LABS: Calcium 8.9 mg/dL (8.6-10.3); Potassium 3.6 mEq/L (3.5-5.1)
[2019-01-10] MEDS: Fluconazole 200 MG/100 ML 100 MG/50 ML BAG IVPB SCH (09:27)
[2019-01-10] MEDS: Apixaban 5 MG TABLET PO SCH ×2 (09:28→22:22)
[2019-01-10] MEDS: Finasteride 5 MG TABLET PO SCH (09:28)
[2019-01-10] MEDS: Metoprolol XL (24 HR) Succ 50 MG TAB.ER.24H PO SCH (09:28)
[2019-01-10] MEDS: Lactobacillus 1 EACH CAP.SPRINK PO SCH ×2 (09:28→22:22)
[2019-01-10] MEDS: Isosorbide MONOnitrate (24 HR) 30 MG TAB.ER.24H PO SCH (09:28)
[2019-01-10] MEDS ORDERED: ALPRAZolam 0.25 MG TABLET PO PRN (09:59)
[2019-01-10] MEDS ORDERED: *HR* Digoxin 0.25 MG TABLET PO SCH (10:00)
--- NOTE | 2019-01-10 10:04 | Internal Med Progress Note ---
Date of Encounter: 01/10/19 Time of Encounter: 09:50 - Assessment and plan (1) Acute on chronic renal failure Current Visit: Yes Status: Acute Assessment and plan: January 09. BUN and creatinine improved to 37 and 1.83 respectively with estimated GFR of 35. Continue IV fluids and withholding Lasix. January 10. BUN and creatinine further improved to 30 and 1.69 respectively with estimated GFR 39. Decrease IV fluids and continue to monitor. Qualifiers: Acute renal failure type: unspecified Chronic kidney disease stage: stage 3 (moderate) Qualified Code(s): N17.9 - Acute kidney failure, unspecified; N18.3 - Chronic kidney disease, stage 3 (moderate) (2) CKD (chronic kidney disease) stage 3, GFR 30-59 ml/min Current Visit: Yes Status: Chronic Assessment and plan: January 09. As above (3) Elevated brain natriuretic peptide (BNP) level Current Visit: Yes Status: Acute Assessment and plan: January 09. BN peptide 1188. Increase Imdur and continue Cozaar. Change atenolol to Toprol-XL. January 10. Add Lanoxin. Decrease IV fluid rate. (4) Atrial fibrillation Current Visit: Yes Status: Chronic Assessment and plan: January 09. Continue Eliquis January 10. Add Lanoxin and continue Eliquis and Toprol-XL. Qualifiers: Atrial fibrillation type: paroxysmal Qualified Code(s): I48.0 - Paroxysmal atrial fibrillation (5) Anemia Current Visit: No Status: Acute Assessment and plan: January 09. Hemoglobin stable at 12.8. Anemia testing showed iron 26, transferrin saturation 12%, transferrin 160, and ferritin 150. B12 and folate are pending. Start ferrous sulfate with ascorbic acid in a.m. Qualifiers: Anemia type: unspecified type Qualified Code(s): D64.9 - Anemia, unspecified (6) Hypothyroidism Current Visit: No Status: Chronic Assessment and plan: January 09. TSH was normal at 1.232 on 09/09/2018. Continue present dose Synthroid. Qualifiers: Hypothyroidism type: unspecified Qualified Code(s): E03.9 - Hypothyroidism, unspecified (7) Strep pharyngitis Current Visit: Yes Status: Acute Assessment and plan: January 09. WBC has normalized to 11.0 with decreased left shift on differential. Continue Zosyn, vancomycin and lactobacillus. (8) Bronchiolitis Current Visit: Yes Status: Acute Assessment and plan: January 09. Abdominal CT showed bilateral lower lungs with inflammatory clusters of micronodules consistent with infectious or inflammatory bronchiolitis. Continue Zosyn and vancomycin with lactobacillus. Pro-calcitonin level will be ordered. Jose . Pro-calcitonin level elevated at 0.30. Continue Zosyn and vancomycin with lactobacillus. - Subjective Interval history: January 09. No new problems have arisen. January 10. No new problems have arisen. - Constitutional Vitals: Temp Pulse Resp BP Pulse Ox 99.0 F 89 16 123/70 95 01/10/19 06:38 01/10/19 06:38 01/10/19 06:38 01/10/19 06:38 01/10/19 06:38 Exam: He is resting comfortably in bed. Heart is irregularly irregular with rate approximately 100/m. Lungs are clear anteriorly. Extremities show no edema. I reviewed his medications and lab results. Internal Medicine: Result - Labs CBC & Chem 7: 01/10/19 05:50 01/10/19 05:50 Labs: Short CBC 01/10/19 Range/Units 05:50 WBC 11.0 (4.3-11.1) K/mcL Hgb 12.7 L (12.9-16.9) g/dL Hct 38.2 (37.5-50.1) % Plt Count 158 (140-400) K/mcL Neutrophils # 8.9 (1.6-8.9) K/mcL BMP 01/10/19 05:50 Sodium 143 Potassium 3.6 Chloride 111 H Carbon Dioxide 21 L BUN 30 H Creatinine 1.69 H Glucose 97 Calcium 8.9 - ABG Interpretation ABG results: ABG ABG pH 7.49 pH Units (7.32-7.45) H 01/07/19 14:59 ABG pCO2 28 mmHg (35-45) L 01/07/19 14:59 ABG pO2 72 mmHg (85-104) L 01/07/19 14:59 ABG O2 Saturation 96 % (95-98) 01/07/19 14:59 PT/INR, D-dimer PT 17.5 Seconds (9.4-12.1) H 01/07/19 14:46 Consult Discharge Plan - Plan Referrals: Mariah Almanzar MD [Primary Care Provider] - 1 week
[2019-01-10] MEDS: *HR* Digoxin 0.5 MG/2 ML AMPUL IVP SCH (10:22)
[2019-01-10] MEDS: Piperacillin/Tazobactam 3.375 GM in 0.9 % Sodium Chloride Mini Bag 100 ML IVPB SCH ×2 (13:34→22:22)
[2019-01-11] MEDS: Piperacillin/Tazobactam 3.375 GM in 0.9 % Sodium Chloride Mini Bag 100 ML IVPB SCH (05:01)
[2019-01-11 06:03] LABS: Basophils # 0.1 K/mcL (0.0-0.2); Basophils % 0.6 %; Eosinophils # 0.3 K/mcL (0.0-0.6); Eosinophils % 3.1 %; Hematocrit 37.8 % (37.5-50.1); Hemoglobin 12.6 g/dL (12.9-16.9); Immature Granulocytes % 0.5 % (0-4); Lymphocytes # 1.1 K/mcL (0.6-4.6); Lymphocytes % 10.4 %; Mean Corpuscular HGB Conc 33.3 g/dL (31.6-35.5); Mean Corpuscular Hemoglobin 32.1 pg (28.0-33.3); Mean Corpuscular Volume 96.4 fL (83.0-100.0); Mean Platelet Volume 11.7 fL (9.4-12.4); Monocytes # 0.6 K/mcL (0.0-1.3); Monocytes % 5.9 %; Neutrophils # 8.5 K/mcL (1.6-8.9); Platelet Count 164 K/mcL (140-400); Red Blood Count 3.92 M/mcL (4.19-5.50); Red Cell Distribution Width 13.3 % (11.5-14.5); Segmented Neutrophils % 79.5 %; White Blood Count 10.6 K/mcL (4.3-11.1)
[2019-01-11 06:32] LABS: Calcium 8.8 mg/dL (8.6-10.3); Potassium 3.8 mEq/L (3.5-5.1)
[2019-01-11 06:43] VITALS: BP 154/84
--- NOTE | 2019-01-11 10:17 | Discharge Summary ---
Orders not resulted at time of discharge: Pending orders 01/07/19 14:53 Culture,Blood [BC] Stat Date of Encounter: 01/11/19 Time of Encounter: 10:04 - Discharge Diagnosis (1) Acute on chronic renal failure Priority: Primary Status: Acute Qualifiers: Acute renal failure type: unspecified Chronic kidney disease stage: stage 3 (moderate) Qualified Code(s): N17.9 - Acute kidney failure, unspecified; N18.3 - Chronic kidney disease, stage 3 (moderate) (2) CKD (chronic kidney disease) stage 3, GFR 30-59 ml/min Priority: Secondary Status: Chronic (3) Elevated brain natriuretic peptide (BNP) level Priority: Secondary Status: Chronic (4) Atrial fibrillation Priority: Secondary Status: Chronic Qualifiers: Atrial fibrillation type: paroxysmal Qualified Code(s): I48.0 - Paroxysmal atrial fibrillation (5) Anemia Priority: Secondary Status: Acute Qualifiers: Anemia type: iron deficiency Iron deficiency anemia type: unspecified iron deficiency Qualified Code(s): D50.9 - Iron deficiency anemia, unspecified (6) Hypothyroidism Priority: Secondary Status: Chronic Qualifiers: Hypothyroidism type: unspecified Qualified Code(s): E03.9 - Hypothyroidism, unspecified (7) Strep pharyngitis Priority: Secondary Status: Acute (8) Bronchiolitis Priority: Secondary Status: Acute Hospital course: Mr. Lei is a 88 year old male who was sent from a retirement after staff report altered mental status. He could not offer additional history in emergency room because of MRDD. Evaluation in emergency room showed leukocytosis with left shift, respiratory alkalosis, lactic acidosis, and acute on chronic renal failure. He was admitted [facility] floor for ongoing care needs. Initial orders were written by the emergency room physician. I saw him on January 08 and performed a history and physical. IV fluids were given and Lasix was held. BUN and creatinine improved to 23 and 1.47 respectively the day of discharge. His mental status returned to what I felt was baseline. He will be changed to Bumex 0.5 mg daily at discharge. His PCP can monitor renal indices. BN peptide sonia to 2610 by day of discharge. He was asymptomatic. He was started on Imdur and Lanoxin. Atenolol was changed to Toprol-XL. He will use Bumex also as per above. Anemia testing showed iron 26, transferrin saturation 12%, transferrin 160, ferritin 150, B12 606, and folate> 22.3. He was started on ferrous sulfate with ascorbic acid. Hemoglobin was stable at 12.6 on day of discharge. His PCP can monitor labs. He was started on Zosyn and vancomycin for bronchiolitis seen in bilateral lower lung hernández on abdominal/pelvis CT. WBC normalized with decrease in left shift. He will continue with antibiotic and probiotic for 4 additional days at discharge. On January 11 he was stable for discharge back to the retirement. He will follow with Dr. Almanzar. - Time Spent with Patient Total time spent providing and/or coordinating discharge services: - Discharge Medications Prescriptions: New Amoxicillin/Clavulanate [Augmentin] 875 mg PO BIDWM #8 tablet Bumetanide [Bumex] 0.5 mg PO DAILY #15 tablet Lactobacillus [Culturelle] 1 each PO BID #8 cap.sprink Ferrous Sulfate 325 mg PO 0630 #30 tablet Isosorbide MONOnitrate (24 HR) [Imdur] 60 mg PO DAILY #30 tab.er.24h Digoxin [Lanoxin] 0.25 mg PO DAILY #30 tablet Metoprolol XL (24 HR) Succ [Toprol Xl] 50 mg PO DAILY #30 tab.er.24h Ascorbic Acid [Vitamin C] 500 mg PO 0630 #30 tablet Continued MOM Conc [MILK OF MAGNESIA conc] 30 ml PO PRN PRN PRN Reason: Constipation Omeprazole 20 mg PO QMWF Omega3/Dha/Epa/Fish Oil/Vit D3 [Fish Oil + Vitamin D-3 Softgel] 1 each PO BID Multivitamin [Multivitamins] 1 each PO QAM Losartan Potassium [Cozaar] 50 mg PO DAILY Levothyroxine [Synthroid] 125 mcg PO 0630 Finasteride [Proscar] 5 mg PO DAILY Donepezil HCl [Aricept] 10 mg PO HS Docusate [Colace] 100 mg PO BID Atorvastatin [Lipitor] 40 mg PO HS Magnesium Hydroxide [Milk of Magnesia] 30 ml PO DAILY PRN PRN Reason: No Bowel Movement x 3 Days Loperamide [Imodium] 4 mg PO QID PRN MDD 4 PRN Reason: Diarrhea Mylanta 30 ml PO PRN PRN PRN Reason: Constipation Isosorbide MONOnitrate (24 HR) [Imdur] 30 mg PO DAILY #30 tab.er.24h Loratadine [Claritin] 10 mg PO QAM PRN #0 PRN Reason: Allergy Symptoms diazePAM [Valium] 2 mg PO DAILY PRN PRN Reason: Anxiety Calcium Carbonate/Vitamin D3 [Oyster Shell Calcium-Vit D Tab] 1 each PO BID Apixaban [Eliquis] 2.5 mg PO BID Cholecalciferol (Vitamin D3) [Dialyvite Vitamin D] 1,000 unit PO DAILY Memantine HCl [Namenda Xr] 28 mg PO DAILY Guaifenesin [Robafen] 200 mg PO Q4H PRN PRN Reason: Cough Albuterol Neb [AccuNeb] 0.63 mg IH Q4H PRN PRN Reason: Shortness Of Breath diazePAM [Valium] 10 mg PO PRN PRN PRN Reason: note Acetaminophen [Acetaminophen ER] 650 mg PO Q4H PRN PRN Reason: note Methyl Salicylate/Menthol [Bengay] 1 appl TP TID PRN PRN Reason: Muscle Pain Discontinued Furosemide [Lasix] 40 mg PO DAILY Atenolol [Tenormin] 50 mg PO DAILY Home Medications: Atorvastatin [Lipitor] 40 mg PO HS 06/02/16 [History] Docusate [Colace] 100 mg PO BID 06/02/16 [History] Donepezil HCl [Aricept] 10 mg PO HS 06/02/16 [History] Finasteride [Proscar] 5 mg PO DAILY 06/02/16 [History] Levothyroxine [Synthroid] 125 mcg PO 0630 06/02/16 [History] Loperamide [Imodium] 4 mg PO QID PRN MDD 4 06/02/16 [History] Losartan Potassium [Cozaar] 50 mg PO DAILY 06/02/16 [History] MOM Conc [MILK OF MAGNESIA conc] 30 ml PO PRN PRN 06/02/16 [History] Magnesium Hydroxide [Milk of Magnesia] 30 ml PO DAILY PRN 06/02/16 [History] Multivitamin [Multivitamins] 1 each PO QAM 06/02/16 [History] Mylanta 30 ml PO PRN PRN 06/02/16 [History] Omega3/Dha/Epa/Fish Oil/Vit D3 [Fish Oil + Vitamin D-3 Softgel] 1 each PO BID 06/02/16 [History] Omeprazole 20 mg PO QMWF 06/02/16 [History] Isosorbide MONOnitrate (24 HR) [Imdur] 30 mg PO DAILY #30 tab.er.24h 06/05/16 [Rx] Loratadine [Claritin] 10 mg PO QAM PRN #0 06/05/16 [Rx] Calcium Carbonate/Vitamin D3 [Oyster Shell Calcium-Vit D Tab] 1 each PO BID 06/08/16 [History] diazePAM [Valium] 2 mg PO DAILY PRN 06/08/16 [History] Acetaminophen [Acetaminophen ER] 650 mg PO Q4H PRN 01/07/19 [History] Albuterol Neb [AccuNeb] 0.63 mg IH Q4H PRN 01/07/19 [History] Apixaban [Eliquis] 2.5 mg PO BID 01/07/19 [History] Cholecalciferol (Vitamin D3) [Dialyvite Vitamin D] 1,000 unit PO DAILY 01/07/19 [History] Guaifenesin [Robafen] 200 mg PO Q4H PRN 01/07/19 [History] Memantine HCl [Namenda Xr] 28 mg PO DAILY 01/07/19 [History] Methyl Salicylate/Menthol [Bengay] 1 appl TP TID PRN 01/07/19 [History] diazePAM [Valium] 10 mg PO PRN PRN 01/07/19 [History] Amoxicillin/Clavulanate [Augmentin] 875 mg PO BIDWM #8 tablet 01/11/19 [Rx] Ascorbic Acid [Vitamin C] 500 mg PO 0630 #30 tablet 01/11/19 [Rx] Bumetanide [Bumex] 0.5 mg PO DAILY #15 tablet 01/11/19 [Rx] Digoxin [Lanoxin] 0.25 mg PO DAILY #30 tablet 01/11/19 [Rx] Ferrous Sulfate 325 mg PO 0630 #30 tablet 01/11/19 [Rx] Isosorbide MONOnitrate (24 HR) [Imdur] 60 mg PO DAILY #30 tab.er.24h 01/11/19 [Rx] Lactobacillus [Culturelle] 1 each PO BID #8 cap.sprink 01/11/19 [Rx] Metoprolol XL (24 HR) Succ [Toprol Xl] 50 mg PO DAILY #30 tab.er.24h 01/11/19 [Rx] Allergies/Adverse Reactions: Allergy/AdvReac Type Severity Reaction Status Date / Time No Known Allergies Allergy Verified 06/02/16 20:46 Date of admission: 01/08/19 14:20 Primary care physician: Mariah Almanzar - Constitutional Vitals: Temp Pulse Resp BP Pulse Ox 97.7 F 81 16 154/84 95 01/11/19 06:41 01/11/19 06:41 01/11/19 06:41 01/11/19 06:41 01/11/19 06:41 - Patient Status Disposition: Home, Self-Care Condition: Fair - Discharge Instructions Follow Up With: Mariah Almanzar MD [Primary Care Provider] - 1 week - Diet and Activity Activity: resume usual activities as tolerated Diet: advance to your usual diet
[2019-01-11] MEDS: Metoprolol XL (24 HR) Succ 50 MG TAB.ER.24H PO SCH (10:55)
[2019-01-11] MEDS: Apixaban 5 MG TABLET PO SCH (10:55)
[2019-01-11] MEDS: Isosorbide MONOnitrate (24 HR) 30 MG TAB.ER.24H PO SCH (10:55)
[2019-01-11] MEDS: Lactobacillus 1 EACH CAP.SPRINK PO SCH (10:55)
[2019-01-11] MEDS: Finasteride 5 MG TABLET PO SCH (10:55)
[2019-01-11] MEDS: Ascorbic Acid 500 MG TABLET PO SCH (10:57)
[2019-01-11] MEDS: *HR* Digoxin 0.5 MG/2 ML AMPUL IVP SCH (10:58)
== END 2019-01-11 14:25 | disposition home or self-care (01) | DRG 683 ==
LOC: EMEROOPIK 14:29 → INPPIK 14:29
PROVIDERS: ADMIT Internal Medicine; ATTEND Internal Medicine